=== PATIENT | male | born 1965 | race Caucasian/White ===

== ENCOUNTER 2017-12-18 10:46 | Emergency (ER) | payer MEDICAID ==
[2017-12-18] MEDS ORDERED: Sodium Chloride 0.9% 10 ML Syringe FLUSH PRN (11:25)
--- NOTE | 2017-12-18 12:32 | CT ---
Head wo Cont CLINICAL HISTORY: Confusion, headaches COMPARISON: 2014, 2010 TECHNIQUE: Transverse scans were obtained from the base of the skull through the vertex without IV co ntrast on a multislice, multidetector CT scanner. Prescribed dose FINDINGS: There is a small area of low-attenuation in the left basal ganglia. This is similar to the 2015 study. There is no mass effect, hemorrhage, or extraaxial collection. The basal cisterns and sul ci over the convexities are prominent. The ventricles are normal for age. IMPRESSION: Low-attenuation focus in the left basal ganglia is likely related to the previous ischemi c event. This is similar to 2015 Age-related atrophy
[2017-12-18] MEDS ORDERED: Sodium Chloride 0.9% 1,000 ML IV SCH (12:45)
[2017-12-18 13:56] VITALS: BP 139/92
--- NOTE | 2017-12-18 14:21 | CR ---
Orbits FB For MRI Bi CLINICAL HISTORY: Screening FINDINGS: There is no metallic foreign body in the region of the orbits IMPRESSION: Negative
--- NOTE | 2017-12-18 14:58 | MR ---
Ang Head wo Cont CLINICAL HISTORY: Confusion TECHNIQUE: Multiple 3D images of the intracranial arteries were displayed on a workstation. All image s were obtained on a 1.5 Eva Siemens unit. FINDINGS: There is mild smooth narrowing of the C3 portion of the right intracranial internal carotid artery. This is approximately 30-40%. The left ICA has a normal course and contour. The anterior cer ebral arteries have normal course and caliber. The middle cerebral arteries have a normal course and caliber. The superior cerebellar arteries are patent bilaterally. The posterior cerebral arteries hav e a normal course and contour. Basilar artery has a normal contour. The right vertebral artery is abs ent. IMPRESSION: Mild smooth stenosis of the C3 portion of the right the intracranial carotid artery No other stenosis or evidence of aneurysm Absent right vertebral artery
[2017-12-18] MEDS ORDERED: LORazepam 1 MG Tab PO ONE (15:11)
--- NOTE | 2017-12-18 15:11 | EDM.PDOC ---
ED HPI GENERAL MEDICAL PROBLEM - General Chief Complaint: Neuro Symptoms/Deficits Stated Complaint: DISORIENTED/NAUSEA/TINGLING Time Seen by Provider: 12/18/17 11:10 Source of Information: Reports: Patient History Limitations: Reports: No Limitations - History of Present Illness INITIAL COMMENTS - FREE TEXT/NARRATIVE: pt went to work today and he became very disoriented and he could not find his way to work. He was confused when he finally was able to get to the job site. He was vwery vague last nite when some of his family were talking to him. He states he was not drinking the nite before except for 2 beers. He does admit to drinking heavily on the weekends. He has a low grade headache but not severe. He feels nauseated. Onset: Today, Other ( He may have had some symptoms last nite. ) Duration: Hour(s): Location: Reports: Head Associated Symptoms: Reports: Confusion, Headaches - Related Data Allergies Allergy/AdvReac Type Severity Reaction Status Date / Time No Known Allergies Allergy Verified 12/18/17 11:05 Home Meds: Home Meds Aspirin [Children's Aspirin] 81 mg PO DAILY 09/21/13 [History] Lovastatin 10 mg PO DAILY 12/28/14 [History] Past Medical History HEENT History: Reports: Hard of Hearing Other Gastrointestinal History: GROIN HERNIA REPAIR Neurological History: Reports: TIA - Past Surgical History Other Musculoskeletal Surgeries/Procedures:: R HAND FX, R GREAT TOE FX Social & Family History - Tobacco Use Smoking Status *Q: Unknown Ever Smoked ED ROS GENERAL - Review of Systems Review Of Systems: See Below Constitutional: Reports: No Symptoms HEENT: Reports: No Symptoms Respiratory: Reports: No Symptoms Cardiovascular: Reports: No Symptoms Endocrine: Reports: No Symptoms GI/Abdominal: Reports: No Symptoms : Reports: No Symptoms Musculoskeletal: Reports: No Symptoms Skin: Reports: No Symptoms Neurological: Reports: Confusion, Headache, Tingling, Other ( He was tingling all over) Psychiatric: Reports: No Symptoms ED EXAM, NEURO - Physical Exam Exam: See Below Text/Narrative:: pt started out for work and he became very confused and at first he was not able to find his way to work. He was nauseated after that. He was somewhat vague lst nite according to his family. Exam Limited By: No Limitations General Appearance: Alert, No Apparent Distress, Other ( Pt is slightly vague but is improving at this point. pupils are equal and reactive. ) Ears: Normal TMs Nose: Normal Inspection Throat/Mouth: Normal Inspection Head Exam: Atraumatic Neck: Normal Inspection Respiratory/Chest: No Respiratory Distress Cardiovascular: Regular Rate, Rhythm GI/Abdominal: Soft, Non-Tender (Male) Exam: Deferred Rectal (Males) Exam: Deferred Neurological: Alert, Oriented x 3, Other ( the confusion is clearing at this point. ) Back Exam: Normal Inspection Extremities: Normal Inspection Psychiatric: Normal Affect Course - Vital Signs Last Recorded V/S: Last Vital Signs Temp 36.8 C 12/18/17 13:55 Pulse 92 12/18/17 13:55 Resp 19 12/18/17 13:55 BP 139/92 H 12/18/17 13:55 Pulse Ox 98 12/18/17 13:55 - Orders/Labs/Meds Orders: Active Orders 24 hr Category Date Time Status EKG Documentation Completion [RC] ASDIRECTED Care 12/18/17 11:23 Active UA W/MICROSCOPIC [URIN] Urgent Lab 12/18/17 12:56 Ordered Saline Lock Insert [OM.PC] Routine Oth 12/18/17 11:25 Ordered EKG 12 Lead [EK] Routine Ther 12/18/17 11:23 Ordered Labs: Laboratory Tests 12/18/17 12/18/17 12/18/17 Range/Units 11:30 11:30 12:37 WBC 10.5 (4.5-11.0) K/uL RBC 5.00 (4.30-5.90) M/uL Hgb 15.5 H (12.0-15.0) g/dL Hct 43.5 (40.0-54.0) % MCV 87 (80-98) fL MCH 31 (27-31) pg MCHC 36 (32-36) % Plt Count 204 (150-400) K/uL Neut % (Auto) 86 H (36-66) % Lymph % (Auto) 8 L (24-44) % [place] % (Auto) 5 (2-6) % Eos % (Auto) 0 L (2-4) % Baso % (Auto) 0 (0-1) % Sodium 136 L (140-148) mmol/L Potassium 3.6 (3.6-5.2) mmol/L Chloride 103 (100-108) mmol/L Carbon Dioxide 24 (21-32) mmol/L Anion Gap 12.6 (5.0-14.0) mmol/L BUN 19 H (7-18) mg/dL Creatinine 1.0 (0.8-1.3) mg/dL Est Cr Clr Drug Dosing 73.46 mL/min Estimated GFR (MDRD) > 60 (>60) Glucose 116 H (74-106) mg/dL Calcium 8.4 L (8.5-10.1) mg/dL Total Bilirubin 0.7 (0.2-1.0) mg/dL AST 28 (15-37) U/L ALT 45 (12-78) U/L Alkaline Phosphatase 66 (46-116) U/L Troponin I < 0.017 (0.000-0.056) ng/mL Total Protein 7.0 (6.4-8.2) g/dL Albumin 3.8 (3.4-5.0) g/dL Globulin 3.2 (2.3-3.5) g/dL Albumin/Globulin Ratio 1.2 (1.2-2.2) Urine Color Urine Appearance Urine pH (4.5-8.0) Ur Specific [place] (1.008-1.030) Urine Protein (NEGATIVE) mg/dL Urine Glucose (UA) (NEGATIVE) mg/dL Urine Ketones (NEGATIVE) mg/dL Urine Occult Blood (NEGATIVE) Urine Nitrite (NEGAITVE) Urine Bilirubin (NEGATIVE) Urine Urobilinogen (NORMAL) mg/dL Ur Leukocyte Esterase (NEGATIVE) Urine RBC (0-5) Urine WBC (0-5) Ur Epithelial Cells Amorphous Sediment Urine Bacteria Urine Mucus 12/18/17 Range/Units 12:56 WBC (4.5-11.0) K/uL RBC (4.30-5.90) M/uL Hgb (12.0-15.0) g/dL Hct (40.0-54.0) % MCV (80-98) fL MCH (27-31) pg MCHC (32-36) % Plt Count (150-400) K/uL Neut % (Auto) (36-66) % Lymph % (Auto) (24-44) % [place] % (Auto) (2-6) % Eos % (Auto) (2-4) % Baso % (Auto) (0-1) % Sodium (140-148) mmol/L Potassium (3.6-5.2) mmol/L Chloride (100-108) mmol/L Carbon Dioxide (21-32) mmol/L Anion Gap (5.0-14.0) mmol/L BUN (7-18) mg/dL Creatinine (0.8-1.3) mg/dL Est Cr Clr Drug Dosing mL/min Estimated GFR (MDRD) (>60) Glucose (74-106) mg/dL Calcium (8.5-10.1) mg/dL Total Bilirubin (0.2-1.0) mg/dL AST (15-37) U/L ALT (12-78) U/L Alkaline Phosphatase (46-116) U/L Troponin I (0.000-0.056) ng/mL Total Protein (6.4-8.2) g/dL Albumin (3.4-5.0) g/dL Globulin (2.3-3.5) g/dL Albumin/Globulin Ratio (1.2-2.2) Urine Color Yellow Urine Appearance Clear Urine pH 5.0 (4.5-8.0) Ur Specific [place] 1.010 (1.008-1.030) Urine Protein Negative (NEGATIVE) mg/dL Urine Glucose (UA) Normal (NEGATIVE) mg/dL Urine Ketones 15 H (NEGATIVE) mg/dL Urine Occult Blood Negative (NEGATIVE) Urine Nitrite Negative (NEGAITVE) Urine Bilirubin Negative (NEGATIVE) Urine Urobilinogen Normal (NORMAL) mg/dL Ur Leukocyte Esterase Negative (NEGATIVE) Urine RBC 0-5 (0-5) Urine WBC Not seen (0-5) Ur Epithelial Cells Rare Amorphous Sediment Rare Urine Bacteria Not seen Urine Mucus Not seen Meds: Medications Discontinued Medications Generic Name Dose Route Start Last Admin Trade Name Freq PRN Reason Stop Dose Admin Sodium Chloride 1,000 mls @ 500 mls/hr 12/18/17 12:45 12/18/17 13:25 Normal Saline IV 500 mls/hr ASDIRECTED DENISE Administration Lorazepam 1 mg 12/18/17 15:11 12/18/17 15:21 Ativan PO 12/18/17 15:12 1 mg ONETIME ONE Administration Sodium Chloride 10 ml 12/18/17 11:25 12/18/17 11:41 Saline Flush FLUSH 10 ml ASDIRECTED PRN Administration Keep Vein Open - Re-Assessments/Exams Free Text/Narrative Re-Assessment/Exam: 12/18/17 17:12 The cat scn of the head was normal except for a old possible luncar infarct, His MRI ango looked good with open vessels. He will return tomorrow for the rest of the MRI Departure - Departure Time of Disposition: 15:07 Disposition: Home, Self-Care 01 Condition: Fair Clinical Impression: Confusion - Discharge Information Instructions: Confusion Referrals: PCP,None [Primary Care Provider] - Forms: ED Department Discharge Care Plan Goals: rtc tomorow for the rest of the Mri stroke protocol. He did have the angiogram portion. ativan 1 mg 3/4 hr prior to the studies. rtc tonight if there are any problems\. - My Orders Last 24 Hours: My Active Orders 12/18/17 11:23 EKG Documentation Completion [RC] ASDIRECTED EKG 12 Lead [EK] Routine 12/18/17 11:25 Saline Lock Insert [OM.PC] Routine 12/18/17 12:56 UA W/MICROSCOPIC [URIN] Urgent - Assessment/Plan Last 24 Hours: My Active Orders 12/18/17 11:23 EKG Documentation Completion [RC] ASDIRECTED EKG 12 Lead [EK] Routine 12/18/17 11:25 Saline Lock Insert [OM.PC] Routine 12/18/17 12:56 UA W/MICROSCOPIC [URIN] Urgent
== END 2017-12-18 15:39 | disposition home or self-care (01) ==
LOC: JP.ED 10:46
DX: R41.0 Disorientation, unspecified (principal); Z79.82 Long term (current) use of aspirin; Z79.899 Other long term (current) drug therapy
CPT/HCPCS: 36415; 70030; 70450; 70544; 80053; 81001; 82962; 84484; 85025; 93005; 96360; 96361; 99284; A9270; J7030; J7050

== ENCOUNTER 2020-08-09 11:24 | Emergency (ER) | payer MEDICAID ==
[2020-08-09] MEDS ORDERED: Aspirin 81 MG Tab.Chew PO ONE (11:53)
[2020-08-09] MEDS ORDERED: Sodium Chloride 0.9% 10 ML Syringe FLUSH PRN (11:58)
[2020-08-09] MEDS ORDERED: Clopidogrel 75 MG Tab PO ONE (11:58)
--- NOTE | 2020-08-09 12:06 | EDM.PDOC ---
ED HPI GENERAL MEDICAL PROBLEM - General Chief Complaint: General Stated Complaint: VISION WEIRD Time Seen by Provider: 08/09/20 11:55 Source of Information: Reports: Patient, Old Records, RN History Limitations: Reports: No Limitations - History of Present Illness INITIAL COMMENTS - FREE TEXT/NARRATIVE: 55 yo male here with intermittent loss of L peripheral vision today. Seems to come and go. His only meds are a statin and a baby ASA daily. Does not smoke. Had a ? TIA a couple yrs ago. Is not diabetic and no HTN. Denies MTZ. Has ED that he uses Viagra prn for. Hasn't been sleeping well for awhile. Seems to wake up after about 4 hrs each day for the past several weeks. 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: Other (see below) (usual meds only) Denies Pain Score (Numeric/FACES): 0 - Related Data Allergies Allergy/AdvReac Type Severity Reaction Status Date / Time No Known Allergies Allergy Verified 08/09/20 11:35 Home Meds: Home Meds Aspirin [Children's Aspirin] 81 mg PO DAILY 09/21/13 [History] Lovastatin 10 mg PO DAILY 12/28/14 [History] Clopidogrel Bisulfate [Plavix] 75 mg PO QAM #30 tablet 08/09/20 [Rx] Metoprolol Succinate 100 mg PO BEDTIME #30 tab.er.24h 08/09/20 [Rx] Past Medical History HEENT History: Reports: Hard of Hearing Cardiovascular History: Reports: High Cholesterol Other Gastrointestinal History: GROIN HERNIA REPAIR Musculoskeletal History: Reports: Fracture Other Musculoskeletal History: fx hand toe Neurological History: Reports: TIA Psychiatric History: Reports: Anxiety - Infectious Disease History Infectious Disease History: Reports: Chicken Pox, Measles, Mumps - Past Surgical History Other Musculoskeletal Surgeries/Procedures:: R HAND FX, R GREAT TOE FX Social & Family History - Tobacco Use Tobacco Use Status *Q: Former Tobacco User Years of Tobacco use: 20 Packs/Tins Daily: 1 Used Tobacco, but Quit: Yes Month/Year Tobacco Last Used: 2001 Second Hand Smoke Exposure: No - Caffeine Use Caffeine Use: Reports: Coffee - Alcohol Use Days Per Week of Alcohol Use: 3 Number of Drinks Per Day: 8 Total Drinks Per Week: 24 - Recreational Drug Use Recreational Drug Use: No ED ROS GENERAL - Review of Systems Review Of Systems: See Below Constitutional: Reports: No Symptoms HEENT: Reports: No Symptoms Respiratory: Reports: No Symptoms Cardiovascular: Reports: Palpitations (chronic) GI/Abdominal: Reports: No Symptoms : Reports: Other (Erectile dysfunction) Musculoskeletal: Reports: No Symptoms Skin: Reports: No Symptoms Neurological: Reports: Other (Vision impaired L visual field) Psychiatric: Reports: No Symptoms ED EXAM, GENERAL - Physical Exam Exam: See Below Exam Limited By: No Limitations General Appearance: Alert, WD/WN, No Apparent Distress Eye Exam: Bilateral Eye: EOMI, Normal Inspection, PERRL Ears: Normal External Exam, Normal Canal, Hearing Grossly Normal Ear Exam: Bilateral Ear: Auricle Normal, Canal Normal Nose: Normal Inspection, No Blood Throat/Mouth: Normal Inspection, Normal Lips, Normal Oropharynx, Normal Voice, No Airway Compromise Head: Atraumatic, Normocephalic Neck: Normal Inspection Respiratory/Chest: No Respiratory Distress, Lungs Clear, Normal Breath Sounds, No Accessory Muscle Use Cardiovascular: Irregularly Irregular (monitor shows frequent unifocal PVC's) Back Exam: Normal Inspection Extremities: Normal Inspection, Normal Range of Motion, Non-Tender, No Pedal Edema Neurological: Alert, Oriented, CN II-XII Intact, Normal Cognition, No Motor/Sensory Deficits, Other (can see my hand moving in his L visual field, but not as clear as on the right. Exam otherwise normal. ) Psychiatric: Normal Affect, Normal Mood Skin Exam: Warm, Dry, Intact, Normal Color, No Rash Course - Vital Signs Last Recorded V/S: Last Vital Signs Temp 37.1 C 08/09/20 11:46 Pulse 97 08/09/20 14:08 Resp 16 08/09/20 14:08 BP 146/92 H 08/09/20 14:08 Pulse Ox 96 08/09/20 14:08 - Orders/Labs/Meds Orders: Active Orders 24 hr Category Date Time Status Cardiac Monitoring [RC] .As Directed Care 08/09/20 11:53 Active Iopamidol [Isovue-370 (76%)] Med 08/09/20 12:45 Active 100 ml IV . DIRECTED Lactated Ringers [Ringers, Lactated] 1,000 ml Med 08/09/20 12:45 Active IV ASDIRECTED Sodium Chloride 0.9% [Normal Saline] 100 ml Med 08/09/20 12:45 Active IV ASDIRECTED Sodium Chloride 0.9% [Saline Flush] Med 08/09/20 11:58 Active 10 ml FLUSH ASDIRECTED PRN Saline Lock Insert [OM.PC] Routine Oth 08/09/20 11:58 Ordered Medication Orders Sodium Chloride (Normal Saline) 100 mls @ 3 mls/sec IV ASDIRECTED DENISE Stop: 08/09/20 16:00 Last Admin: 08/09/20 13:03 Dose: 4 mls/sec Documented by: FARZANA Lactated Ringer's (Ringers, Lactated) 1,000 mls @ 500 mls/hr IV ASDIRECTED DENISE Last Admin: 08/09/20 13:16 Dose: 500 mls/hr Documented by: ANA Iopamidol (Isovue-370 (76%)) 100 ml IV . DIRECTED DENISE Stop: 08/09/20 16:00 Last Admin: 08/09/20 13:03 Dose: 100 ml Documented by: FARZANA Sodium Chloride (Saline Flush) 10 ml FLUSH ASDIRECTED PRN PRN Reason: Keep Vein Open Last Admin: 08/09/20 13:02 Dose: 10 ml Documented by: FARZANA Labs: Laboratory Tests 08/09/20 08/09/20 08/09/20 Range/Units 12:05 12:09 12:09 WBC 8.8 (4.5-11.0) K/uL RBC 5.32 (4.30-5.90) M/uL Hgb 16.2 H (12.0-15.0) g/dL Hct 47.0 (40.0-54.0) % MCV 88 (80-98) fL MCH 31 (27-31) pg MCHC 35 (32-36) % Plt Count 249 (150-400) K/uL Sodium 141 (140-148) mmol/L Potassium 3.9 (3.6-5.2) mmol/L Chloride 103 (100-108) mmol/L Carbon Dioxide 22 (21-32) mmol/L Anion Gap 16.3 H (5.0-14.0) mmol/L BUN 25 H (7-18) mg/dL Creatinine 1.2 (0.8-1.3) mg/dL Est Cr Clr Drug Dosing 61.29 mL/min Estimated GFR (MDRD) > 60 (>60) Glucose 104 (74-106) mg/dL Calcium 8.9 (8.5-10.1) mg/dL Magnesium (1.8-2.4) mg/dL Troponin I < 0.017 (0.000-0.056) ng/mL TSH, Ultra Sensitive 0.650 (0.358-3.740) uIU/mL 08/09/20 Range/Units 12:27 WBC (4.5-11.0) K/uL RBC (4.30-5.90) M/uL Hgb (12.0-15.0) g/dL Hct (40.0-54.0) % MCV (80-98) fL MCH (27-31) pg MCHC (32-36) % Plt Count (150-400) K/uL Sodium (140-148) mmol/L Potassium (3.6-5.2) mmol/L Chloride (100-108) mmol/L Carbon Dioxide (21-32) mmol/L Anion Gap (5.0-14.0) mmol/L BUN (7-18) mg/dL Creatinine (0.8-1.3) mg/dL Est Cr Clr Drug Dosing mL/min Estimated GFR (MDRD) (>60) Glucose (74-106) mg/dL Calcium (8.5-10.1) mg/dL Magnesium 2.0 (1.8-2.4) mg/dL Troponin I (0.000-0.056) ng/mL TSH, Ultra Sensitive (0.358-3.740) uIU/mL Meds: Medications Generic Name Dose Route Start Last Admin Trade Name Freq PRN Reason Stop Dose Admin Sodium Chloride 100 mls @ 3 mls/sec 08/09/20 12:45 08/09/20 13:03 Normal Saline IV 08/09/20 16:00 4 mls/sec ASDIRECTED DENISE Administration Lactated Ringer's 1,000 mls @ 500 mls/hr 08/09/20 12:45 08/09/20 13:16 Ringers, Lactated IV 500 mls/hr ASDIRECTED DENISE Administration Iopamidol 100 ml 08/09/20 12:45 08/09/20 13:03 Isovue-370 (76%) IV 08/09/20 16:00 100 ml . DIRECTED DENISE Administration Sodium Chloride 10 ml 08/09/20 11:58 08/09/20 13:02 Saline Flush FLUSH 10 ml ASDIRECTED PRN Administration Keep Vein Open Discontinued Medications Generic Name Dose Route Start Last Admin Trade Name Freq PRN Reason Stop Dose Admin Aspirin 243 mg 08/09/20 11:53 08/09/20 11:59 Aspirin PO 08/09/20 11:54 243 mg ONETIME ONE Administration Clopidogrel Bisulfate 300 mg 08/09/20 11:58 08/09/20 12:03 Plavix PO 08/09/20 11:59 300 mg ONETIME ONE Administration Metoprolol Tartrate 50 mg 08/09/20 13:59 08/09/20 14:06 Lopressor PO 08/09/20 14:00 50 mg ONETIME ONE Administration Sodium Chloride 10 ml 08/09/20 12:34 Normal Saline FLUSH 08/09/20 12:35 ONETIME ONE - Radiology Interpretation Free Text/Narrative:: CT head- IMPRESSION: Involutional changes. No acute-appearing findings. No substantial change when compared to 2018 Please note that all CT scans at this facility use dose modulation, iterative reconstruction, and/or weight-based dosing when appropriate to reduce radiation dose to as low as reasonably achievable. Dictated by Eyal Hansen MD @ Aug 09 2020 1:35PM (Electronic Signature) angio head-IMPRESSION: No acute intracranial abnormality at CT/CTA. No large vessel occlusion. No significant carotid or vertebral artery stenosis or dissection. Maximilian Garcia MD Neurointerventional Radiologist [facility] angio neck- IMPRESSION: No acute intracranial abnormality at CT/CTA. No large vessel occlusion. No significant carotid or vertebral artery stenosis or dissection. Maximilian Garcia MD Neurointerventional [facility] CT Results Date: 08/09/20 CT Results Time: 13:54 - Re-Assessments/Exams Free Text/Narrative Re-Assessment/Exam: 08/09/20 13:21 Sx's cleared up completely at this point. Departure - Departure Time of Disposition: 14:55 Disposition: Home, Self-Care 01 Condition: Fair Clinical Impression: Transient vision disturbance of left eye HTN (hypertension) Qualifiers: Hypertension type: unspecified Qualified Code(s): I10 - Essential (primary) hypertension Insomnia Qualifiers: Insomnia type: unspecified Qualified Code(s): G47.00 - Insomnia, unspecified - Discharge Information Prescriptions: Metoprolol Succinate 100 mg PO BEDTIME #30 tab.er.24h Clopidogrel Bisulfate [Plavix] 75 mg PO QAM #30 tablet Referrals: PCP,None [Primary Care Provider] - Forms: ED Department Discharge Additional Instructions: F/U in the clinic next Friday at 1 pm. Continue your current medications. Add Plavix 75 mg daily and Metoprolol as directed at night. Avoid salt or salty foods. Make an appt for an eye exam. If the eye exam does not show anything you may need a referral to a neurologist. Return if worse. Take Plavix every morning. Sepsis Event Note (ED) - Evaluation Sepsis Screening Result: No Definite Risk - Focused Exam Vital Signs: Vital Signs Temp Pulse Pulse Resp BP BP Pulse Ox 08/09/20 14:08 97 16 146/92 H 96 08/09/20 14:06 103 H 146/92 H 08/09/20 13:50 98 16 158/98 H 97 08/09/20 13:05 103 H 16 158/98 H 96 08/09/20 11:46 37.1 C 101 H 16 122/88 96 08/09/20 11:40 37.1 C 101 H 16 122/88 96 - My Orders Last 24 Hours: My Active Orders 08/09/20 11:53 Cardiac Monitoring [RC] .As Directed 08/09/20 11:58 Sodium Chloride 0.9% [Saline Flush] 10 ml FLUSH ASDIRECTED PRN Saline Lock Insert [OM.PC] Routine 08/09/20 12:45 Iopamidol [Isovue-370 (76%)] 100 ml IV . DIRECTED Lactated Ringers [Ringers, Lactated] 1,000 ml IV ASDIRECTED Sodium Chloride 0.9% [Normal Saline] 100 ml IV ASDIRECTED - Assessment/Plan Last 24 Hours: My Active Orders 08/09/20 11:53 Cardiac Monitoring [RC] .As Directed 08/09/20 11:58 Sodium Chloride 0.9% [Saline Flush] 10 ml FLUSH ASDIRECTED PRN Saline Lock Insert [OM.PC] Routine 08/09/20 12:45 Iopamidol [Isovue-370 (76%)] 100 ml IV . DIRECTED Lactated Ringers [Ringers, Lactated] 1,000 ml IV ASDIRECTED Sodium Chloride 0.9% [Normal Saline] 100 ml IV ASDIRECTED
[2020-08-09] MEDS ORDERED: Sodium Chloride 0.9% 10 ML SDV FLUSH ONE (12:34)
[2020-08-09] MEDS ORDERED: Sodium Chloride 0.9% 100 ML IV SCH (12:45)
[2020-08-09] MEDS ORDERED: Lactated Ringers 1,000 ML IV SCH (12:45)
[2020-08-09] MEDS ORDERED: Iopamidol 755 Mg/ML 100 ML Bottle IV SCH (12:45)
--- NOTE | 2020-08-09 13:39 | CRLCT ---
INDICATION: Stroke suspected clinically COMPARISON: A similar study dated December 18, 2017 TECHNIQUE: CT examination of the head was performed as axial sections without intravenous contrast. Images were obtained from the vertex of the skull through the skull base. Please note that all CT scans at this facility use dose modulation, iterative reconstruction, and/or weight-based dosing when appropriate to reduce radiation dose to as low as reasonably achievable. FINDINGS: The brain shows no sign of mass lesion, mass effect, hemorrhage, or edema. There are involutional changes. There is mild cortical atrophy and there is mild white matter disease. There is no hydrocephalus. The visualized portions of the orbits are normal in appearance. The osseous structures are normal in appearance with no sign of abnormality in the skull base or calvarium. IMPRESSION: Involutional changes. No acute-appearing findings. No substantial change when compared to 2018 Please note that all CT scans at this facility use dose modulation, iterative reconstruction, and/or weight-based dosing when appropriate to reduce radiation dose to as low as reasonably achievable. Dictated by Eyal Hansen MD @ Aug 09 2020 1:35PM Signed by Dr. Eyal Hansen @ Aug 09 2020 1:38PM
--- NOTE | 2020-08-09 13:54 | CRLCT ---
INDICATION: Acute loss of left peripheral vision. TECHNIQUE: After standard noncontrast head CT, high resolution axial CT images acquired through the head and neck following rapid intravenous administration of iodinated contrast. Multiplanar MIPS of cranial and cervical vasculature performed. FINDINGS: Noncontrast head CT: There is no intracranial hemorrhage or fluid collection. The gerardo-white matter differentiation is maintained. Brain parenchymal volume loss is noted. There are nonspecific white matter hypodensities commonly seen with cerebral small vessel disease. The ventricles are of normal morphology. The basal cisterns are clear. CTA head: There is normal filling of the intracranial vasculature; i.e. there is no large vessel occlusion or significant intracranial stenosis. There is no cerebral aneurysm or evidence for vascular malformation. CTA neck: Carotid arteries: There is atherosclerotic plaque. There is no significant stenosis by NASCET criteria. There is no evidence for dissection. Vertebral arteries: There is atherosclerotic plaque. There is no significant stenosis. There is no evidence for dissection. The soft tissues of the neck are within normal limits. The cervical spine is in normal alignment. Degenerative changes are noted in the cervical spine. The lung apices are clear. IMPRESSION: No acute intracranial abnormality at CT/CTA. No large vessel occlusion. No significant carotid or vertebral artery stenosis or dissection. Maximilian Garcia MD Neurointerventional Radiologist [facility] Please note that all CT scans at this facility use dose modulation, iterative reconstruction, and/or weight-based dosing when appropriate to reduce radiation dose to as low as reasonably achievable. Dictated by Maximilian Garcia MD @ Aug 09 2020 1:46PM Signed by Dr. Maximilian Garcia @ Aug 09 2020 1:52PM
[2020-08-09] MEDS ORDERED: Metoprolol Tartrate 50 MG Tab PO ONE (13:59)
[2020-08-09 14:09] VITALS: BP 146/92; PULSE 97
== END 2020-08-09 15:32 | disposition home or self-care (01) ==
LOC: JP.ED 11:24
DX: H53.122 Transient visual loss, left eye (principal); I10 Essential (primary) hypertension; G47.00 Insomnia, unspecified; E78.00 Pure hypercholesterolemia, unspecified; Z86.73 Personal history of transient ischemic attack (TIA), and cerebral infarction without residual deficits; Z87.891 Personal history of nicotine dependence; Z79.82 Long term (current) use of aspirin; Z79.899 Other long term (current) drug therapy; Z79.02 Long term (current) use of antithrombotics/antiplatelets
CPT/HCPCS: 36415; 70450; 70496; 70498; 80048; 83735; 84443; 84484; 85027; 99284; A9270; J7120; Q9967

== ENCOUNTER 2021-03-05 12:51 | Emergency (ER) | payer MEDICAID ==
[2021-03-05 13:39] VITALS: BP 134/70; PULSE 40
--- NOTE | 2021-03-05 14:38 | EDM.PDOC ---
ED HPI GENERAL MEDICAL PROBLEM - General Chief Complaint: Eye Problems Stated Complaint: BLURRY VISION Time Seen by Provider: 03/05/21 14:25 Source of Information: Reports: Patient, Family, RN History Limitations: Reports: No Limitations - History of Present Illness Onset: Today, Sudden Onset Date: 03/05/21 Onset Time: 10:00 Duration: Other (Resolved ) Location: Reports: Head Quality: Reports: Other (Reduced field of vision) Improves with: Reports: Other (Resolves on its own) Worsens with: Reports: None Context: Reports: Other Associated Symptoms: Reports: No Other Symptoms - Related Data Allergies Allergy/AdvReac Type Severity Reaction Status Date / Time No Known Allergies Allergy Verified 03/05/21 13:44 Home Meds: Home Meds Aspirin [Children's Aspirin] 81 mg PO DAILY 09/21/13 [History] Metoprolol Succinate 75 mg PO BEDTIME 03/05/21 [History] Sacubitril/Valsartan [Entresto 24 mg-26 mg Tablet] 1 tab PO BID 03/05/21 [History] atorvaSTATin [Lipitor] 40 mg PO BEDTIME 03/05/21 [History] Past Medical History HEENT History: Reports: Hard of Hearing Cardiovascular History: Reports: High Cholesterol, Hypertension Other Respiratory History: sob, due to right lung problems and diaphragm issue. Other Gastrointestinal History: GROIN HERNIA REPAIR Musculoskeletal History: Reports: Fracture Other Musculoskeletal History: fx hand toe Neurological History: Reports: TIA Psychiatric History: Reports: Anxiety - Infectious Disease History Infectious Disease History: Reports: Chicken Pox, Measles, Mumps - Past Surgical History Other HEENT Surgeries/Procedures: blurred vision. Other Cardiovascular Surgeries/Procedures: on a conveyor monitor. Other Musculoskeletal Surgeries/Procedures:: R HAND FX, R GREAT TOE FX Social & Family History - Tobacco Use Tobacco Use Status *Q: Never Tobacco User - Caffeine Use Caffeine Use: Reports: Coffee ED ROS GENERAL - Review of Systems Review Of Systems: See Below Constitutional: Reports: No Symptoms HEENT: Reports: Vision Change (Loss of peripheral vision in left eye, returned just before being seen) Respiratory: Reports: No Symptoms Cardiovascular: Reports: Other (History of heart work-up, currently has a loop recorder waiting on MRI of his heart.) Endocrine: Reports: No Symptoms GI/Abdominal: Reports: No Symptoms Musculoskeletal: Reports: No Symptoms Neurological: Reports: Tingling (Had some tingling in his fingers at time of vision changes). Denies: Confusion, Dizziness, Headache, Numbness, Paresthesia Psychiatric: Reports: No Symptoms ED EXAM GENERAL W FULL EYE - Physical Exam Exam: See Below Exam Limited By: No Limitations General Appearance: Alert, WD/WN, No Apparent Distress Eye Exam: Left Eye: Vision Changes (Resolved just prior to being seen by a provider), Bilateral Eye: EOMI, Normal Fundi, Normal Inspection, PERRL Course - Vital Signs Last Recorded V/S: Last Vital Signs Temp 36.8 C 03/05/21 13:46 Pulse 40 L 03/05/21 13:46 Resp 16 03/05/21 13:46 BP 134/70 03/05/21 13:46 Pulse Ox 96 03/05/21 13:46 - Re-Assessments/Exams Free Text/Narrative Re-Assessment/Exam: 03/05/21 14:38 Patient's vision resolved prior to being seen. Peripheral vision intact by exam. Visual acuity after resolution R 20/30 L 20/25. Patient has appointment for MRI of heart on the and then to follow cardiology afterwards. Patient encouraged to maintain this appointment and to notify appeals assistant of current visual changes. He has been told in the past he may or may not have had TIAs. Numbness and tingling have resolved, vision has resolved. Patient will monitor and return if he needs any further evaluation or has any additional concerns. Departure - Departure Time of Disposition: 14:51 Disposition: Home, Self-Care 01 Condition: Good Clinical Impression: Decreased peripheral vision of left eye, Transient vision disturbance of left eye - Discharge Information *PRESCRIPTION DRUG MONITORING PROGRAM REVIEWED*: No *COPY OF PRESCRIPTION DRUG MONITORING REPORT IN PATIENT MALA: No Instructions: Visual Disturbances Referrals: Pavel Walker NP [Primary Care Provider] - Forms: ED Department Discharge Additional Instructions: Maintain appointments with cardiology. Return to emergency room if visual disturbance occurs if not able to see wash operator. Notify appeals assistant of current vision problem and resolution. Sepsis Event Note (ED) - Evaluation Sepsis Screening Result: No Definite Risk - Focused Exam Vital Signs: Vital Signs Temp Pulse Resp BP Pulse Ox 03/05/21 13:46 36.8 C 40 L 16 134/70 96 03/05/21 13:38 36.8 C 40 L 16 134/70 96 - Assessment/Plan Assessment:: Left eye visual disturbance Plan: Patient symptoms resolved prior to being seen. Patient instructed to return to ER or clinic if symptoms return and is not able to see up wash operator. Patient with cardiac work-up ongoing. Patient to notify appeals assistant of current visual disturbance for further direction at this time.
== END 2021-03-05 14:51 | disposition home or self-care (01) ==
LOC: JP.ED 12:51
DX: H53.8 Other visual disturbances (principal); E78.00 Pure hypercholesterolemia, unspecified; I10 Essential (primary) hypertension; Z86.73 Personal history of transient ischemic attack (TIA), and cerebral infarction without residual deficits; Z79.899 Other long term (current) drug therapy; Z79.82 Long term (current) use of aspirin
CPT/HCPCS: 99283

== ENCOUNTER 2024-10-28 09:37 | Emergency (ER) | payer MEDICAID ==
[2024-10-28 09:55] LABS: BASOPHILS ABSOLUTE AUTO 0.04 K/uL (0.00-0.10); BASOPHILS PERCENT AUTO 0.5 % (0.1-1.3); EOSINOPHILS ABSOLUTE AUTO 0.13 K/uL (0.00-0.40); EOSINOPHILS PERCENT AUTO 1.7 % (0.0-5.4); HEMATOCRIT 43.2 % (38.4-49.7); HEMOGLOBIN 14.9 g/dL (12.9-16.9); IMMATURE GRAN PERCENT AUTO 0.3 % (0.0-0.7); LYMPHOCYTES PERCENT AUTO 29.3 % (11.4-47.7); MEAN CORPUSCULAR HEMOGLOBIN 31.4 pg (31.6-35.5); MEAN CORPUSCULAR HGB CONC 34.5 g/dL (31.6-35.5); MEAN CORPUSCULAR VOLUME 91.1 fL (81.4-99.0); MONOCYTES PERCENT AUTO 10.2 % (3.3-12.6); NEUTROPHILS ABSOLUTE AUTO 4.56 K/uL (1.0-7.6); PLATELET COUNT,PLT 243 K/uL (130-375); RED BLOOD CELL COUNT 4.74 M/uL (4.14-5.76); WHITE BLOOD CELL COUNT,WBC 7.9 K/uL (3.2-11.0)
[2024-10-28 09:58] LABS: IMMATURE GRAN ABSOLUTE AUTO 0.02 K/uL (0.00-0.23)
[2024-10-28 10:08] LABS: ANION GAP 9.2 mmol/L (5.0-14.0); BLOOD UREA NITROGEN,BUN 15 mg/dL (7-18); CALCIUM 8.9 mg/dL (8.5-10.1); CARBON DIOXIDE,CO2 28 mmol/L (21-32); CHLORIDE,CL 103 mmol/L (100-108); CREATININE 1.1 mg/dL (0.8-1.3); ESTIMATED GFR 76 mL/min (>60); GLUCOSE RANDOM 95 mg/dL (74-106); POTASSIUM,K 3.6 mmol/L (3.6-5.2); SODIUM,NA 140 mmol/L (140-148); TROPONIN I HIGH SENSITIVITY 4.1 pg/mL (<=60.3)
[2024-10-28 17:24] VITALS: BP 125/90; PULSE 73
== END 2024-10-28 13:05 | disposition home or self-care (01) ==
LOC: JP.ED 09:37
DX: R55 Syncope and collapse (principal); I10 Essential (primary) hypertension; Z79.82 Long term (current) use of aspirin; Z79.899 Other long term (current) drug therapy; E78.00 Pure hypercholesterolemia, unspecified
CPT/HCPCS: 36415; 80048; 84484; 85025; 93005; 99285